=== PATIENT | female | born 1990 | race African-American/Black ===

== ENCOUNTER 2016-12-05 15:18 | Emergency (ER) | payer OTHER ==
--- NOTE | 2016-12-05 17:59 | ED ---
Skin Complaint - HPI Summary HPI Summary: Patient presents to ED with CC of tingling and dry patches on upper lip bilaterally with small white dots. 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 She denies previous orolabial HSV. She placed carmex cold sore cream on the areas which made the tingling worse, but she feels it helped prevent a cold sore from forming. She takes no medications, denies soap or lotion changes or any food allergies. She notes to eating a lot of hot cheetos and mangos lately, but denies allergies to either. She denies detergent change or medication changes. No airway compromise. Denies new sexual partners. She also has tried benadryl with no relief. She was sick recently and she normally takes Lysine daily, but hasn't in several days. - History of Current Complaint Chief Complaint: EDGeneral Time Seen by Provider: 12/05/16 17:36 Stated Complaint: LIP PAIN Hx Obtained From: Patient Hx Last Menstrual Period: 12/03/15 Onset/Duration: Started Days Ago Skin Exposure Onset/Duration: Hours Ago Timing: Intermittent, Lasting Minutes Onset Severity: Mild Current Severity: Mild Pain Intensity: 0 Pain Scale Used: 0-10 Numeric Skin Location: Face Aggravating Symptom(s): Nothing Alleviating Symptom(s): OTC Meds Associated Signs & Symptoms: Negative - Allergy/Home Medications Allergies/Adverse Reactions: Allergies Allergy/AdvReac Type Severity Reaction Status Date / Time No Known Allergies Allergy Verified 12/05/16 15:47 PMH/Surg Hx/FS Hx/Imm Hx Previously Healthy: Yes Endocrine/Hematology History: Denies: Hx Diabetes, Hx Thyroid Disease Cardiovascular History: Denies: Hx Hypertension Respiratory History: Denies: Hx Asthma, Hx Chronic Obstructive Pulmonary Disease (COPD) GI History: Denies: Hx Ulcer History: Denies: Hx Renal Disease - Immunization History Hx Pertussis Vaccination: No Immunizations Up to Date: No Infectious Disease History: No Infectious Disease History: Denies: Hx Hepatitis, Hx Human Immunodeficiency Virus (HIV), Traveled Outside the [place] in Last 30 Days - Family History Known Family History: Positive: None - Social History Occupation: Employed Full-time Lives: With Family Alcohol Use: Occasionally Hx Substance Use: Yes Substance Use Type: Reports: Marijuana Hx Tobacco Use: No Smoking Status (MU): Never Smoked Tobacco Review of Systems Constitutional: Negative Eyes: Negative Positive: Other - lip pain Cardiovascular: Negative Respiratory: Negative Positive: Other - small white bumps to sides of lip over the oral commissure Neurological: Negative Psychological: Normal All Other Systems Reviewed And Are Negative: Yes Physical Exam Triage Information Reviewed: Yes Vital Signs On Initial Exam: Initial Vitals Temp Pulse Resp BP Pulse Ox 98.8 F 71 16 132/63 100 12/05/16 15:49 12/05/16 15:49 12/05/16 15:49 12/05/16 15:49 12/05/16 15:49 Vital Signs Reviewed: Yes Appearance: Positive: Well-Appearing, Well-Nourished Skin: Positive: Warm, Skin Color Reflects Adequate Perfusion Head/Face: Positive: Normal Head/Face Inspection Eyes: Positive: LOLITA, Conjunctiva Clear ENT: Positive: Pharynx normal Neck: Positive: Supple, No Lymphadenopathy Respiratory/Lung Sounds: Positive: Clear to Auscultation, Breath Sounds Present Cardiovascular: Positive: Normal, RRR Musculoskeletal: Positive: Normal, Strength/ROM Intact Neurological: Positive: Sensory/Motor Intact, Alert, Oriented to Person Place, Time Psychiatric: Positive: Normal Diagnostics - Vital Signs Vital Signs Temp Pulse Resp BP Pulse Ox 12/05/16 15:49 98.8 F 71 16 132/63 100 - Laboratory Lab Statement: Any lab studies that have been ordered have been reviewed, and results considered in the medical decision making process. Course/Dx - Course Course Of Treatment: Provider educated patient regarding HSV 1 orolabial vs genital. Encouraged abreva, acyclovir as prescribed, tea tree oil and lysine. Patient will follow up with PCP if symptoms persist. Rx given. - Differential Diagnoses - Skin Complaint Differential Diagnoses: Allergic Reaction, Other - hsv 2, orolabial hsv, allergic reaction, contact dermatitis - Diagnoses Provider Diagnoses: HSV-1 infection Discharge - Discharge Plan Condition: Stable Disposition: HOME Prescriptions: Acyclovir CAP* [Zovirax CAP*] 200 mg PO 5ID #25 cap Patient Education Materials: Oral Herpes Simplex Virus Infections (ED) Referrals: No Primary Care Phys,NOPCP [Primary Care Provider] - Additional Instructions: Follow up with PCP. Obtain Abreva and place over the cold sore immediately at first sign of dryness or tingling. Lysine daily Tea tree oil to the lip will help with future outbreaks as well.
[2016-12-05 18:05] VITALS: BP 132/74
== END 2016-12-05 18:04 | disposition home or self-care (01) ==
LOC: ED 15:18
DX: B00.9 Herpesviral infection, unspecified (principal)
CPT/HCPCS: 99282

== ENCOUNTER 2017-01-21 09:27 | Emergency (ER) | payer OTHER ==
[2017-01-21 10:14] LABS: Manual Entry Verification AS; UR Preg Internal Control QC Line Present; UR Preg Kit Lot# 7010135
--- NOTE | 2017-01-21 10:27 | ED ---
GI/ HPI - HPI Summary HPI Summary: 26F presents with burning with urination for a month. She also noticed vaginal lesions yesterday with some burning that believes is HSV infection. She denies any chance of STD as she has not had sex in 2 years. She denies any vaginal discharge. She had her first outbreak of HSV a couple years ago. She denies any abdominal pain, constipation, diarrhea, or vomiting. She has chronic nausea at baseline that is unchanged. She denies any fever. She denies any flank pain. - History of Current Complaint Chief Complaint: EDUrogenitalProblems Time Seen by Provider: 01/21/17 09:56 Stated Complaint: FREQ URINATION Pain Intensity: 0 - Allergy/Home Medications Allergies/Adverse Reactions: Allergies Allergy/AdvReac Type Severity Reaction Status Date / Time No Known Allergies Allergy Verified 12/05/16 15:47 PMH/Surg Hx/FS Hx/Imm Hx Endocrine/Hematology History: Denies: Hx Diabetes, Hx Thyroid Disease Cardiovascular History: Denies: Hx Hypertension Respiratory History: Denies: Hx Asthma, Hx Chronic Obstructive Pulmonary Disease (COPD) GI History: Denies: Hx Ulcer History: Denies: Hx Renal Disease Infectious Disease History: Denies: Hx Hepatitis, Hx Human Immunodeficiency Virus (HIV), Traveled Outside the [place] in Last 30 Days - Family History Known Family History: Positive: None - Social History Alcohol Use: Occasionally Hx Substance Use: Yes Substance Use Type: Reports: Marijuana Hx Tobacco Use: No Smoking Status (MU): Never Smoked Tobacco Review of Systems Negative: Fever Negative: Chest Pain Negative: Shortness Of Breath Positive: Nausea - chronic. Negative: Abdominal Pain, Vomiting, Diarrhea Positive: burning - with lesions, dysuria. Negative: flank pain All Other Systems Reviewed And Are Negative: Yes Physical Exam Triage Information Reviewed: Yes Vital Signs On Initial Exam: Initial Vitals Temp Pulse Resp BP Pulse Ox 97 F 59 17 137/88 100 01/21/17 09:29 01/21/17 09:29 01/21/17 09:29 01/21/17 09:29 01/21/17 09:29 Vital Signs Reviewed: Yes Appearance: Positive: Well-Appearing Skin: Positive: Warm, Dry Head/Face: Positive: Normal Head/Face Inspection Eyes: Positive: Normal, Conjunctiva Clear Respiratory/Lung Sounds: Positive: Clear to Auscultation, Breath Sounds Present Cardiovascular: Positive: Normal, RRR Abdomen Description: Positive: Nontender, Soft. Negative: CVA Tenderness (R), CVA Tenderness (L) Bowel Sounds: Positive: Present Pelvic Exam: Positive: other - lesions noted to labia consistent with HSV. Negative: active bleeding - Mackenzie Coma Scale Coma Scale Total: 15 Diagnostics - Vital Signs Vital Signs Temp Pulse Resp BP Pulse Ox 01/21/17 10:01 97 F 59 17 137/88 100 01/21/17 09:29 97 F 59 17 137/88 100 - Laboratory Lab Results: Lab Results 01/21/17 Range/Units 09:33 Urine Color Pending Urine Appearance Pending Urine pH Pending Ur Specific [place] Pending Urine Protein Pending Urine Ketones Pending Urine Blood Pending Urine Nitrate Pending Urine Bilirubin Pending Urine Urobilinogen Pending Ur Leukocyte Esterase Pending Urine Glucose Pending Urine Ascorbic Acid Pending Urine Test Negative (Negative) Lab Statement: Any lab studies that have been ordered have been reviewed, and results considered in the medical decision making process. GIGU Course/Dx - Course Course Of Treatment: 26F presents with burning with urination for a month and vaginal lesions yesterday with some burning that believes is HSV infection. She denies any chance of STD as she has not had sex in 2 years. She denies any abdominal pain, constipation, diarrhea, or vomiting. She has chronic nausea at baseline that is unchanged. She denies any fever. She denies any flank pain. On exam nontender abdomen, no CVA tenderness. vaginal exam shows lesions consistent with HSV so will treat with valtrex. u/a shows WBC and leuko marni so will give bactrim. patient understands and agrees with plan - Diagnoses Differential Diagnoses - Female: Urinary Tract Infection, Vaginitis, Other - HSV , Provider Diagnoses: HSV infection, UTI (urinary tract infection) Discharge - Discharge Plan Condition: Good Disposition: HOME Prescriptions: Sulfamethox/Trimethoprim DS* [Bactrim DS 800/160 TAB*] 1 tab PO BID #10 tab ValACYclovir (*) [Valtrex 500 mg (*)] 500 mg PO BID #10 tab Patient Education Materials: Genital Herpes Simplex (ED), Urinary Tract Infection in Women (ED) Referrals: [facility] [Outside] Additional Instructions: Take valtrex twice a day for 5 days Take Bactrim twice a day for 5 days Establish care with primary to follow up with Return to ED if develop fever, severe abdominal pain, nausea, or vomiting or any new or worsening symptoms
[2017-01-21 10:55] LABS: Urine Bacteria Absent (Absent); Urine Bilirubin Negative (Negative); Urine Glucose Negative (Negative); Urine Nitrite Negative (Negative)
[2017-01-21 11:20] VITALS: BP 134/82
== END 2017-01-21 11:19 | disposition home or self-care (01) ==
LOC: ED 09:27
DX: N39.0 Urinary tract infection, site not specified (principal); B00.9 Herpesviral infection, unspecified; R11.0 Nausea; R30.0 Dysuria
CPT/HCPCS: 81003; 81015; 81025; 87086; 99282

== ENCOUNTER 2017-06-01 13:02 | Emergency (ER) | payer OTHER ==
[2017-06-01 13:32] VITALS: BP 132/78
--- NOTE | 2017-06-01 15:11 | UC ---
Jonh Laughlin Rebecca, scribed for Daren Austin MD on 06/01/17 at 1451 . General HPI - HPI Summary HPI Summary: Pt is a 27 y/o F who presents to [facility] c/o intermittent illness for 2-3 weeks. Pt reports that for the last 2-3 weeks she has been intermittently ill stating that every time her symptoms seem to improve, they will return. Pt c/o nasal congestion, nausea, decreased appetite and post-nasal drip described as "I feel it when I swallow but it comes from up top." Additionally notes that this morning she experienced vomiting, lightheadedness, and a frontal RODRIGUEZ that is currently moderate, ranked 6/10 and characterized as an ache. Sx aggravated by stress and her work schedule, alleviated by nothing. Denies sore throat, rhinorrhea, ear pain, fever, chills, wheezing, chest congestion and abdominal pain. States that everyone in her house has been "kind of sick." - History of Current Complaint Chief Complaint: UCGeneralIllness Stated Complaint: VOMITING RESP ISSUE Time Seen by Provider: 06/01/17 14:38 Hx Obtained From: Patient Hx Last Menstrual Period: 1 WEEK AGO Onset/Duration: Lasting Weeks - 2-3 weeks, Still Present Timing: Intermittent Episodes Lasting: Current Severity: Moderate Pain Intensity: 6 Pain Location at: Frontal RODRIGUEZ Character: Ache Aggravating: Stress and work schedule Alleviating: Nothing Associated Signs & Symptoms: Positive: Headache, Nausea. Negative: Abdominal Pain, Fever, Wheezing - Allergy/Home Medications Allergies/Adverse Reactions: Allergies Allergy/AdvReac Type Severity Reaction Status Date / Time Ciprofloxacin [From Cipro] Allergy Rash Verified 06/01/17 13:33 PMH/Surg Hx/FS Hx/Imm Hx - Additional Past Medical History Additional PMH: NEGATIVE PMHX: COPD, HTN, DM, Thyroid Disease, Asthma - Surgical History Surgical History: None - Family History Known Family History: Negative: Diabetes - Social History Alcohol Use: Occasionally Substance Use Type: Marijuana Smoking Status (MU): Never Smoked Tobacco Review of Systems Constitutional: Negative Skin: Negative Eyes: Negative ENT: Sinus Congestion, Other - Post-nasal drip Respiratory: Negative Cardiovascular: Negative Gastrointestinal: Vomiting, Nausea, Other - Decreased appetite Genitourinary: Negative Motor: Negative Neurovascular: Negative Musculoskeletal: Negative Neurological: Headache - Frontal, Other - Lightheadedness Psychological: Negative All Other Systems Reviewed And Are Negative: Yes - Comments Additional Review of Systems Comments: NEGATIVE: Sore throat, rhinorrhea, ear pain, fever, chills, wheezing, chest congestion and abdominal pain Physical Exam Triage Information Reviewed: Yes Vital Signs: Initial Vital Signs Temp 100.1 F 06/01/17 13:28 Pulse 72 06/01/17 13:28 Resp 15 06/01/17 13:28 BP 132/78 06/01/17 13:28 Pulse Ox 100 06/01/17 13:28 Vital Signs Reviewed: Yes - Additional Comments General: mildly ill-appearing, no pain distress Skin: warm, color reflects adequate perfusion, dry Head: normal Eyes: EOMI, LOLITA ENT: TM normal, positive rhinorrhea, posterior pharynx is mildly erythematous, oral mucosa moist Neck: supple, nontender, posterior anterior cervical lymphadenopathy Respiratory: CTA, breath sounds present Cardiovascular: RRR Abdomen: soft, nontender Bowel: present Musculoskeletal: normal, strength/ROM intact Neurological: normal, sensory/motor intact, A&O x3 Psychological: affect/mood appropriate Re-Evaluation - Re-Evaluation First Eval Re-Evaluation Time: 14:49 Comment: Discussed results from prior visit Course/Dx - Course Course Of Treatment: Allergies noted. Medications reviewed. Elevated BP noted and advised to follow up with PCP. - Differential Dx - Multi-Symptom Provider Diagnoses: SINUSITIS. NAUSEA/VOMITING Discharge - Discharge Plan Condition: Stable Disposition: HOME Prescriptions: Amoxicillin/Clavulanate TAB* [Augmentin TAB 875*] 875 mg PO BID #20 tab Ondansetron ODT TAB* [Zofran 4 MG Odt TAB*] 4 mg PO Q6H PRN #10 tab.odt PRN Reason: Nausea Patient Education Materials: Sinusitis (ED), Acute Nausea and Vomiting (ED) Forms: *Work Release Referrals: Jane Tavarez MD [Primary Care Provider] - Additional Instructions: FOLLOW UP WITH YOUR DOCTOR. GET RECHECKED FOR ANY WORSENING OF YOUR CONDITION OR QUESTIONS OR CONCERNS. The documentation as recorded by the Jonh weaver Rebecca accurately reflects the service I personally performed and the decisions made by me, Daren Austin MD.
== END 2017-06-01 14:55 | disposition home or self-care (01) ==
LOC: UCEAST 13:02
DX: J32.9 Chronic sinusitis, unspecified (principal); R11.2 Nausea with vomiting, unspecified
CPT/HCPCS: 99212; G0463

== ENCOUNTER 2018-05-15 14:41 | Emergency (ER) | payer OTHER ==
--- NOTE | 2018-05-15 16:12 | RAD ---
Indication: Left leg pain and injury. 2 views of the left lower leg demonstrates no fracture or dislocation. No other bone or joint abnormality is identified. IMPRESSION: No fracture of the left leg is noted.
--- NOTE | 2018-05-15 16:13 | ED ---
Lower Extremity - HPI Summary HPI Summary: 28-year-old female presents with left calf injury today. She states that she dropped a milk crate on her left calf. there is bruising noted to her left calf. She states that pain is worst when tries to ambulate. No numbness or tingling. No medical conditions. not on blood thinners. Incident happened a couple hours ago. On exam has ecchymosis noted to left calf. Tenderness over left calf. X-ray normal. We will treat as contusion with rice. Patient understands agrees the plan. - History of Current Complaint Chief Complaint: EDExtremityLower Stated Complaint: LT LEG INJURY Time Seen by Provider: 05/15/18 15:22 Hx Last Menstrual Period: 1 WEEK AGO Pain Intensity: 0 - Allergies/Home Medications Allergies/Adverse Reactions: Allergies Allergy/AdvReac Type Severity Reaction Status Date / Time ciprofloxacin [From Cipro] Allergy Rash Verified 05/15/18 15:12 Home Medications: Home Medications NK [No Home Medications Reported] 05/15/18 [History Confirmed 05/15/18] PMH/Surg Hx/FS Hx/Imm Hx Endocrine/Hematology History: Denies: Hx Diabetes, Hx Thyroid Disease Cardiovascular History: Denies: Hx Hypertension Respiratory History: Denies: Hx Asthma, Hx Chronic Obstructive Pulmonary Disease (COPD) GI History: Denies: Hx Ulcer History: Denies: Hx Renal Disease Infectious Disease History: No Infectious Disease History: Denies: Hx Hepatitis, Hx Human Immunodeficiency Virus (HIV), History Other Infectious Disease, Traveled Outside the [place] in Last 30 Days - Family History Known Family History: Positive: None Negative: Diabetes - Social History Alcohol Use: Rare Hx Substance Use: Yes Substance Use Type: Reports: Marijuana Hx Tobacco Use: No Smoking Status (MU): Never Smoked Tobacco Review of Systems Negative: Fever Negative: Chest Pain Negative: Shortness Of Breath Positive: Myalgia - left calf pain All Other Systems Reviewed And Are Negative: Yes Physical Exam Triage Information Reviewed: Yes Vital Signs On Initial Exam: Initial Vitals Temp Pulse Resp BP Pulse Ox 98.0 F 76 16 141/73 99 05/15/18 15:10 05/15/18 15:10 05/15/18 15:10 05/15/18 15:10 05/15/18 15:10 Vital Signs Reviewed: Yes Appearance: Positive: Well-Appearing Skin: Positive: Warm, Dry Head/Face: Positive: Normal Head/Face Inspection Eyes: Positive: Normal, Conjunctiva Clear ENT: Positive: Pharynx normal Respiratory/Lung Sounds: Positive: Clear to Auscultation, Breath Sounds Present Cardiovascular: Positive: Normal, RRR Musculoskeletal: Positive: Strength/ROM Intact - left calf with pain, Other - good pulses, ecchymosis to left calf, tenderness left calf Neurological: Positive: Normal Psychiatric: Positive: Normal Diagnostics - Vital Signs Vital Signs Temp Pulse Resp BP Pulse Ox 05/15/18 15:10 98.0 F 76 16 141/73 99 - Laboratory Lab Statement: Any lab studies that have been ordered have been reviewed, and results considered in the medical decision making process. - Radiology leg Xray Interpretation: No Acute Changes Radiology Interpretation Completed By: Radiologist Lower Extremity Course/Dx - Course Course Of Treatment: 28-year-old female presents with left calf injury today. She states that she dropped a milk crate on her left calf. there is bruising noted to her left calf. She states that pain is worst when tries to ambulate. No numbness or tingling. No medical conditions. not on blood thinners. Incident happened a couple hours ago. On exam has ecchymosis noted to left calf. Tenderness over left calf. X-ray normal. We will treat as contusion with rice. Patient understands agrees the plan. - Diagnoses Differential Diagnosis/HQI/PQRI: Positive: Contusion, Fracture (Closed), Sprain Provider Diagnoses: Contusion of left lower leg Discharge - Sign-Out/Discharge Documenting (check all that apply): Patient Departure - Discharge Plan Condition: Good Disposition: HOME Patient Education Materials: Contusion in Adults (ED) Referrals: Jane Tavarez MD [Primary Care Provider] - Additional Instructions: Stay off ankle as much as possible Ice, elevate, Ibuprofen or tyenlol every 6 hours for pain Follow up with primary if no improvement Return to ED if develop or any new or worsening symptoms - Billing Disposition and Condition Condition: GOOD Disposition: Home
[2018-05-15 16:36] VITALS: BP 129/72
== END 2018-05-15 16:35 | disposition home or self-care (01) ==
LOC: ED 14:41
DX: S80.12XA Contusion of left lower leg, initial encounter (principal); W20.8XXA Other cause of strike by thrown, projected or falling object, initial encounter; Y92.9 Unspecified place or not applicable
CPT/HCPCS: 99282

== ENCOUNTER 2019-05-07 00:17 | Emergency (ER) | payer BC ==
--- OUTSIDE RECORDS SUMMARY | 2019-05-07 00:28 | XMS REPORT | Continuity of Care Document ---
:1990 External Reference #:[id number] Author Name Luis Reed MD (transmitted by agent of provider Charleen Vinson) Address [address] [place] [address] Care Team Providers Name Role Phone Solo Sweet MD - Internal Care Team Information Sustainable Development Policy Analyst Medicine Jane Tavarez MD - Internal Care Team Information Sustainable Development Policy Analyst Medicine Problems Active Problems Provider Date Current tear of lateral cartilage AND/OR meniscus Luis Reed MD Onset: of knee Closed traumatic dislocation of patellofemoral Luis Reed MD Onset: 2018 joint Sprain of knee and leg Luis Reed MD Onset: 11/14/2018 Knee joint effusion Luis Reed MD Onset: 11/14/2018 Social History Type Date Description Comments Sex Unknown Tobacco Use Start: Unknown Never Smoked Cigarettes ETOH Use Occasionally consumes alcohol ETOH Use social Recreational Drug Use Current Drug User Tobacco Use Start: Unknown Patient has never smoked Recreational Drug Use Current Drug User marijuana Smoking Status Reviewed: 03/16/19 Patient has never smoked Exercise Type/Frequency Exercises regularly Exercise Type/Frequency hiking, and gym Allergies, Adverse Reactions, Alerts Active Allergies Reaction Severity Comments Date Sulfa Antibiotics 02/16/2017 Medications Active Medications SIG Qnty Indications Ordering Provider Date Hinge Knee Brace Disp 1 hinge 1units M25.462 Luis Reed MD 02/28/2019 knee brace Multi Adult Gummies 2 by mouth Unknown every day Chewtabs History Medications No Active Medications Unknown 11/14/2018 - 01/03/2019 Immunizations Description No Information Available Vital Signs Date Vital Result Comment 03/16/2019 11:53am Height 63 inches 5'3" Weight 219.00 lb Heart Rate 60 /min BP Systolic 110 mmHg BP Diastolic 70 mmHg Pain Level 5 BMI (Body Mass Index) 38.8 kg/m2 02/15/2019 1:11pm Height 64.5 inches 5'4.50" Weight 212.00 lb Heart Rate 80 /min BP Systolic 120 mmHg BP Diastolic 88 mmHg Body Temperature 98.6 F Pain Level 9 BMI (Body Mass Index) 35.8 kg/m2 Results Description No Information Available Procedures Date Code Description Status 02/07/2019 78239 ECHO Transthoracic, Real-Time 2D With Doppler And Color Completed Flow 02/07/2019 10189 ECHO Transthoracic, Real-Time 2D With Doppler And Color Completed Flow 01/03/2019 99830 EKG Tracing & Interpretation Completed Medical Devices Description No Information Available Encounters Type Date Location Provider Dx Diagnosis Office Visit 03/16/2019 Orthopedic Luis Reed MD M25.462 Effusion, left 11:30a [facility] knee S83.282A Oth tear of lat mensc, current injury, left knee, init Office Visit 02/15/2019 1:45p [facility]opedic Luis Reed, M25.462 Effusion, left [facility] S83.012A Lateral subluxation of left patella, initial encounter Office Visit 01/03/2019 10:00a [facility] Nikolay Mclaughlin E66.9 Obesity , Kirsten Britt unspecified R00.1 Bradycardia, unspecified R42 Dizziness and giddiness R01.1 Cardiac murmur, unspecified R55 Syncope and collapse I27.20 Pulmonary hypertension, unspecified Office Visit 11/14/2018 2:45p [facility] Luis Reed, M25.462 Effusion, left [facility] S83.92xA Sprain of unspecified site of left knee, initial encounter M25.562 Pain in left knee Assessments Date Code Description Provider 03/16/2019 M25.462 Effusion, left knee Luis Reed MD 03/16/2019 S83.282A Other tear of lateral meniscus, current Luis Reed MD injury, left knee, initial encounter 02/15/2019 M25.462 Effusion, left knee Luis Reed MD 02/15/2019 S83.012A Lateral subluxation of left patella, Luis Reed MD initial encounter 02/07/2019 I27.20 Pulmonary hypertension, unspecified Nikolay Britt M.D. 02/07/2019 I27.20 Pulmonary hypertension, unspecified [facility] Schedule 02/07/2019 I34.0 Mitral valve regurgitation [facility] 01/03/2019 E66.9 Obesity, unspecified Nikolay Britt M.D. 01/03/2019 R00.1 Bradycardia, unspecified Nikolay Britt M.D. 01/03/2019 R42 Dizziness and giddiness Nikolay Britt M.D. 01/03/2019 R01.1 Cardiac murmur, namrata Britt M.D. 01/03/2019 R55 Syncope and collapse Nikolay Britt M.D. 01/03/2019 I27.20 Pulmonary hypertension Nikolay Britt M.D. 11/14/2018 M25.462 Effusion, left knee Luis Reed MD 11/14/2018 S83.92xA Sprain of unspecified site of left knee, Luis Reed MD initial encounter 11/14/2018 M25.562 Pain in left knee Luis Reed MD Plan of Treatment Future Appointment(s):04/19/2019 1:00 pm - [facility]03/16/2019 - Luis Reed, MDM25.462 Effusion, left kneeS83.282A Other tear of lateral meniscus, current injury, left knee, initial encounterFollow up:Follow up: 10-14 days post op or h and p Functional Status Description No Information Available Mental Status Description No Information Available Referrals Description No Information Available
[2019-05-07] MEDS ORDERED: Ketorolac INJ* 30 MG/ML 1 ML VIAL IV PUSH ONE (00:51)
[2019-05-07] MEDS ORDERED: Benztropine INJ* 1 MG/ML 2 ML AMP SLOW PUSH ONE (00:51)
--- NOTE | 2019-05-07 00:54 | ED ---
Neck Pain - HPI Summary HPI Summary: This patient is a 29 year old F presenting to ED with a chief complaint of left neck pain since yesterday at 0000. Patient states it hurt when she ate her sandwich. The patient went to bed and woke up still with the pain. She worked around the house and had continued pain at dinner. Patient states the pain is in her neck and radiates into the L shoulder into the axilla. Patient states she cannot turn her neck. This morning she reports her left arm felt weird. She has never had any other problems with her neck. The patient rates the pain 10/10 in severity. Symptoms aggravated by nothing. Symptoms alleviated by movement. Patient denies fever. - History of Current Complaint Chief Complaint: EDNeckComplaint Stated Complaint: NECK PAIN PER PT Time Seen by Provider: 05/07/19 00:46 Hx Obtained From: Patient Hx Last Menstrual Period: 1 WEEK AGO Onset/Duration Of Injury/Symptoms: Days - Since yesterday Mechanism Of Injury: No Known Trauma Timing: Constant, Lasting Days - Since yesterday Onset/Duration: Gradual Onset, Started days ago - Since yesterday, Still Present , Worse Since Severity Initially: Severe Severity Currently: Severe Pain Intensity: 10 Pain Scale Used: 0-10 Numeric Location: Discrete At: - Left neck, Radiates To: - Left shoulder and axilla Aggravating Factors: Movement Alleviating Factors: Nothing Associated Signs & Symptoms: Negative: Fever - Allergies/Home Medications Allergies/Adverse Reactions: Allergies Allergy/AdvReac Type Severity Reaction Status Date / Time ciprofloxacin [From Cipro] Allergy Rash Verified 05/10/19 23:45 PMH/Surg Hx/FS Hx/Imm Hx Endocrine/Hematology History: Denies: Hx Diabetes, Hx Thyroid Disease Cardiovascular History: Denies: Hx Hypertension, Hx Pacemaker/ICD Respiratory History: Denies: Hx Asthma, Hx Chronic Obstructive Pulmonary Disease (COPD) GI History: Denies: Hx Ulcer History: Denies: Hx Dialysis, Hx Renal Disease Sensory History: Denies: Hx Hearing Aid Psychiatric History: Denies: Hx Panic Disorder Infectious Disease History: No Infectious Disease History: Denies: Hx Hepatitis, Hx Human Immunodeficiency Virus (HIV), History Other Infectious Disease, Traveled Outside the [place] in Last 30 Days - Family History Known Family History: Negative: Diabetes - Social History Alcohol Use: Rare Hx Substance Use: Yes Substance Use Type: Reports: Marijuana Hx Tobacco Use: No Smoking Status (MU): Never Smoked Tobacco Review of Systems Negative: Fever Musculoskeletal: Other - Neck pain radiating into left shoulder and axilla All Other Systems Reviewed And Are Negative: Yes Physical Exam - Summary Physical Exam Summary: Appearance: very distraught tearful woman, appears to be in a lot of pain Skin: Warm, dry, no obvious rash Eyes: sclera anicteric, no conjunctival pallor ENT: mucous membranes moist Neck: unable to flex or extend her neck without significant discomfort. She can rotate somewhat to the left and right but this is limited. There is no significant tenderness to palpation or obvious muscle spasm noted in the neck. Respiratory: No signs of respiratory distress Cardiovascular: Appears well perfused, pulses are nml Abdomen: deferred Musculoskeletal: Moving all 4 extremities without obvious discomfort Neurological: Awake and alert, mentation is normal, speech is fluent and appropriate Psychiatric: affect is normal, does not appear anxious or depressed Triage Information Reviewed: Yes Vital Signs On Initial Exam: Initial Vitals Temp Pulse Resp BP Pulse Ox 99.4 F 74 15 135/101 100 05/07/19 00:20 05/07/19 00:20 05/07/19 00:20 05/07/19 00:20 05/07/19 00:20 Vital Signs Reviewed: Yes Procedures - Sedation Patient Received Moderate/Deep Sedation with Procedure: No Diagnostics - Vital Signs Vital Signs Temp Pulse Resp BP Pulse Ox 05/07/19 00:20 99.4 F 74 15 135/101 100 - Laboratory Result Diagrams: 05/07/19 01:07 05/07/19 01:07 Lab Statement: Any lab studies that have been ordered have been reviewed, and results considered in the medical decision making process. - Radiology C-spine XR Radiology Interpretation Completed By: ED Physician Summary of Radiographic Findings: Normal, pending official radiology report. Re-Evaluation - Re-Evaluation First Eval Re-Evaluation Time: 17:43 Comment: Discussed results with patient. Patient reports feeling better. She is moving her neck more. I cautioned the patient about signs for spinal infection or nerve damage. Patient will be discharged home with dx of neck pain. Patient understands and agrees with this plan. Neck Course/Dx - Course Course Of Treatment: This patient is a 29 year old F presenting to ED with a chief complaint of left neck pain since yesterday at 0000. In the ED course, patient received Cogentin, Toradol, and morphine. Blood work revealed MCH 32, MPV 7.1, absolute eosinophils 1.2, carbon dioxide 20, glucose 113. C-spine XR was normal, pending official radiology report. Discussed results with patient. Patient will be discharged home with dx of neck pain. Patient understands and agrees with this plan. - Diagnoses Differential Dx/HQI/PQRI: Positive: Dystonia, Meningitis, Torticollis Provider Diagnoses: Neck pain Discharge ED - Sign-Out/Discharge Documenting (check all that apply): Patient Departure - Discharge - Discharge Plan Condition: Improved Disposition: HOME Prescriptions: Benztropine TAB* [Cogentin TAB*] 1 mg PO BID #10 tab Oxycodone TAB(NF) [Oxycodone HCl 10 MG] 10 mg PO Q6H PRN #12 tab MDD 4 PRN Reason: Pain - Severe Patient Education Materials: Neck Pain (ED) Forms: *Work Release Referrals: Jane Tavarez MD [Primary Care Provider] - 1 Week Additional Instructions: If your symptoms worsen over the next 2-3 days, or you develop new symptoms like fever or weakness in the extremities, we should see you back right away. If that were to happen we would need to get an advanced imaging test of your neck like an MRI. - Billing Disposition and Condition Condition: IMPROVED Disposition: Home - Attestation Statements Document Initiated by Carie: Yes Documenting Scribe: Freddy Chamberlain Provider For Whom Carie is Documenting (Include Credential): James Monteiro MD Scribe Attestation: I, Freddy Chamberlain, scribed for James Monteiro MD on 05/14/19 at 0524. Scribe Documentation Reviewed: Yes Provider Attestation: The documentation as recorded by the Freddy weaver accurately reflects the service I personally performed and the decisions made by me, James Monteiro MD Status of Scribmitul Document: Viewed
[2019-05-07] MEDS: Morphine 4 MG/ML VIAL (1 ml) 4 MG/ML VIAL IV PRN ×2 (01:11→03:28)
[2019-05-07 01:20] LABS: ABS Basophils 0.1 10^3/ul (0-0.2); ABS Eosinophils 1.2 10^3/ul (0-0.6); ABS Lymphocytes 2.4 10^3/ul (1.0-4.8); ABS Monocytes 0.6 10^3/ul (0-0.8); ABS Neutrophils 3.2 10^3/ul (1.5-7.7); Eosinophil % 16.4 %; Hematocrit 42 % (35-47); Hemoglobin 13.8 g/dL (12.0-16.0); Lymphocyte % 32.1 %; Mean Corpuscular HGB Conc 33 g/dL (31-36); Mean Corpuscular Hemoglobin 32 pg (27-31); Mean Corpuscular Volume 95 fL (80-97); Mean Platelet Volume 7.1 fL (7.4-10.4); Nucleated Red Blood Cells % 0.2; Platelet Count 294 10^3/uL (150-450); Red Blood Count 4.37 10^6 /uL (3.70-4.87); Red Cell Distribution Width 13 % (10-15); White Blood Count 7.6 10^3/uL (3.5-10.8)
[2019-05-07 01:32] LABS: Anion Gap 6 mmol/L (2-11); BUN/Creatinine Ratio 19.1 (8-20); Blood Urea Nitrogen 17 mg/dL (6-24); C Reactive Protein < 1.00 mg/L (<8.01); CO2 Carbon Dioxide 20 mmol/L (22-32); Chloride 109 mmol/L (101-111); EGFR African American 90.1 (>60); EGFR Non-African American 74.5 (>60); Glucose 113 mg/dL (70-100); Potassium 4.1 mmol/L (3.5-5.0); Sodium 135 mmol/L (135-145)
[2019-05-07 01:39] LABS: HCG Pregnancy < 0.60 mIU/mL
[2019-05-07 06:13] VITALS: BP 138/96
== END 2019-05-07 06:12 | disposition home or self-care (01) ==
LOC: ED 00:17
DX: M54.2 Cervicalgia (principal); Z88.1 Allergy status to other antibiotic agents
CPT/HCPCS: 36415; 72040; 80048; 84702; 85025; 86140; 96374; 96375; 99283; J0515; J1885; J2270

== ENCOUNTER 2019-05-10 19:49 | Emergency (ER) | payer SELFPAY ==
[2019-05-11] MEDS ORDERED: Iohexol 300* (CONTRAST) 10 ML SDV IV ONE (00:07)
--- NOTE | 2019-05-11 00:20 | ED ---
Throat Pain/Nasal Congestion - HPI Summary HPI Summary: Pt is a 29 y/o F presenting to the ED for a chief complaint of throat pain. Pt reports pain with swallowing that radiates to the neck and has a sharp sensation. Pt woke up with neck pain and limited ROM due to the pain on . Pt has been unable to eat without pain. Pt denies abdominal pain or throat swelling. Pt was seen at [facility] on 05/08/19 for left neck pain with swallowing. Pt had an x-ray performed at [facility]. Pt was discharged home with some relief of symptoms and given Benztropine, Oxycodone, and a muscle relaxant. Pt has a PMHx of bradycardia. - History of Current Complaint Chief Complaint: EDGeneral Time Seen by Provider: 05/10/19 23:21 Hx Obtained From: Patient Onset/Duration: Lasting Days, Still Present Severity: Moderate Associated Signs And Symptoms: Positive: Dysphagia Cough: None - Allergies/Home Medications Allergies/Adverse Reactions: Allergies Allergy/AdvReac Type Severity Reaction Status Date / Time ciprofloxacin [From Cipro] Allergy Rash Verified 05/10/19 23:45 PMH/Surg Hx/FS Hx/Imm Hx Previously Healthy: Yes Endocrine/Hematology History: Denies: Hx Diabetes, Hx Thyroid Disease Cardiovascular History: Reports: Other Cardiovascular Problems/Disorders - Bradycardia Denies: Hx Hypertension, Hx Pacemaker/ICD Respiratory History: Denies: Hx Asthma, Hx Chronic Obstructive Pulmonary Disease (COPD) GI History: Denies: Hx Ulcer History: Denies: Hx Dialysis, Hx Renal Disease Sensory History: Denies: Hx Legally Blind, Hx Hearing Aid Opthamlomology History: Denies: Hx Legally Blind EENT History: Denies: Hx Deafness Psychiatric History: Denies: Hx Panic Disorder - Surgical History Surgical History: None Surgery Procedure, Year, and Place: None Infectious Disease History: No Infectious Disease History: Denies: Hx Hepatitis, Hx Human Immunodeficiency Virus (HIV), History Other Infectious Disease, Traveled Outside the [place] in Last 30 Days - Family History Known Family History: Negative: Diabetes - Social History Alcohol Use: Rare Hx Substance Use: Yes Substance Use Type: Reports: Marijuana Hx Tobacco Use: No Smoking Status (MU): Never Smoked Tobacco Review of Systems Positive: Other - Positive throat pain with swallowing; negative throat swelling Negative: Abdominal Pain Positive: Myalgia - Neck, radiates from throat, Decreased ROM - Neck All Other Systems Reviewed And Are Negative: Yes Physical Exam - Summary Physical Exam Summary: Constitutional: Well-developed, Well-nourished, Alert. (-) Distressed Skin: Warm, Dry HENT: Normocephalic; Atraumatic. Posterior oropharynx clear, no goiter. Eyes: Conjunctiva normal Neck: Musculoskeletal ROM normal neck. (-) JVD, (-) Stridor, (-) Nuchal rigidity Cardio: Rhythm regular, rate normal, Heart sounds normal; Intact distal pulses; Radial pulses are 2+ and symmetric. (-) Murmur Pulmonary/Chest wall: Effort normal. (-) Respiratory distress, (-) Wheezes, (-) Rales Abd: Soft, (-) tenderness, (-) Distension, (-) Guarding, (-) Rebound Musculoskeletal: (-) Edema Lymph: (-) Cervical adenopathy Neuro: Alert, Oriented x3 Psych: Mood and affect Normal Triage Information Reviewed: Yes Vital Signs On Initial Exam: Initial Vitals Temp Pulse Resp BP Pulse Ox 98.4 F 84 16 139/85 100 05/10/19 19:55 05/10/19 19:55 05/10/19 19:55 05/10/19 19:55 05/10/19 19:55 Vital Signs Reviewed: Yes Procedures - Sedation Patient Received Moderate/Deep Sedation with Procedure: No Diagnostics - Vital Signs Vital Signs Temp Pulse Resp BP Pulse Ox 05/10/19 21:50 98.6 F 84 18 131/72 100 05/10/19 19:55 98.4 F 84 16 139/85 100 - Laboratory Lab Statement: Any lab studies that have been ordered have been reviewed, and results considered in the medical decision making process. - CT Neck CT CT Interpretation Completed By: Radiologist Summary of CT Findings: Neck CT IMPRESSION: There is mild thickening of the pharyngeal mucosal space at the level of the. nasopharynx, cannot exclude mild adenoiditis without visible abscess. Reviewed by ED physician. Re-Evaluation - Re-Evaluation 1st re-eval Re-Evaluation Time: 01:55 Comment: At 01:55, pt was updated about imaging results. Pt will be discharged home with a diagnosis of adenoiditis. We'll hold on antibiotics given afebrile well-appearing and no abscess on imaging. EENT Course/Dx - Course Course Of Treatment: 29-year-old female who presents to throat pain for several days. Patient also reports sensation of something stuck in throat, no obvious mass on exam, no goiter. Maintaining secretions, no difficulty in breathing. Given repeat presentation for similar, will check imaging to assess for mass, abscess, or lesion causing pain. - Diagnoses Provider Diagnoses: Adenoiditis Discharge ED - Sign-Out/Discharge Documenting (check all that apply): Patient Departure - Discharge - Discharge Plan Condition: Stable Disposition: HOME Patient Education Materials: Pharyngitis (ED) Referrals: Jane Tavarez MD [Primary Care Provider] - Additional Instructions: You were seen in the emergency department for throat pain. Your CT scan showed something called adenoiditis which is inflammation of the adenoids. This is likely caused by a virus. If any studies were not completed at the time of discharge you will be called with the relevant results. Please follow up with your primary care doctor in next 2-3 days and return to emergency department for worsening pain, fevers, trouble swallowing or breathing , or concerning symptoms. It was a pleasure taking care of you today. - Billing Disposition and Condition Condition: STABLE Disposition: Home - Attestation Statements Document Initiated by Shivaibmitul: Yes Documenting Scribe: Siobhan Underwood Provider For Whom Carie is Documenting (Include Credential): Andre Mckoy MD Scribe Attestation: Siobhan Laughlin, scribed for Andre Mckoy MD on 05/16/19 at 1123. Scribe Documentation Reviewed: Yes Provider Attestation: The documentation as recorded by the Siobhan weaver accurately reflects the service I personally performed and the decisions made by , Andre Mckoy MD Status of Scribe Document: Viewed
[2019-05-11] MEDS ORDERED: Ketorolac INJ* 30 MG/ML 1 ML VIAL IV ONE (01:51)
[2019-05-11 02:18] VITALS: BP 128/74
== END 2019-05-11 02:16 | disposition home or self-care (01) ==
LOC: ED 19:49
DX: J35.02 Chronic adenoiditis (principal); R07.0 Pain in throat; Z86.79 Personal history of other diseases of the circulatory system; R13.10 Dysphagia, unspecified
CPT/HCPCS: 70491; 99282; J1885; Q9967

== ENCOUNTER → 2019-06-04 | Day surgery (SDC) | payer BC ==
[~2019-06-04] MED LIST: Buffered Lidocaine 1% SYRIN* 1 ML/SYRINGE INTRADERM ONE; Dexamethasone IV* 4 MG/ML 1 ML (4 MG) IV SLOW PU ONE; Dexamethasone IV* 4 MG/ML 1 ML (4 MG) ONE; DiMENhydriNATE IV* 50 MG/ML VIAL IV PUSH PRN; EPHEDrine (Pressors)* 50 MG/ML VIAL ONE; Etomidate* 2 MG/ML 10 ML VIAL ONE; Etomidate* 2 MG/ML 20 ML VIAL (40 MG) ONE; Famotidine IV* 10 MG/ML 2 ML (20 mg) IV ONE; Famotidine IV* 10 MG/ML 2 ML (20 mg) ONE; Ketorolac INJ* 30 MG/ML 1 ML VIAL ONE; Lactated Ringers 1000 ML Bag* 1,000 ML IV SCH; Lidocaine 1% w EPI 1:200,000* SDV 30 ML VIAL ONE; Metoclopramide IV* 5 MG/ML 2 ML VIAL IV SLOW PU ONE; Metoclopramide IV* 5 MG/ML 2 ML VIAL ONE; Midazolam* 1 MG/ML 2 ML VIAL (2 MG) ONE; Naloxone* 0.4 MG/ML 1 ML VIAL IV PRN; Ondansetron INJ* 2 MG/ML VIAL ONE; Phenylephrine 40 MCG/ML SYRINGE ONE; Ropivacaine 0.2% * 2 MG/ML VIAL ONE; ceFAZolin 2 GM in NS PREMIX(*) 2 GM/100 ML BAG IVPB ONE; fentaNYL* 50 MCG/ML 2 ML VIAL (100 MCG VIAL) IV PRN; fentaNYL* 50 MCG/ML 2 ML VIAL (100 MCG VIAL) ONE
[2019-06-04 17:28] VITALS: BP 123/84
--- NOTE | 2019-06-05 10:28 | OP ---
DATE OF OPERATION: 06/04/19 [facility] DATE OF : 88 SURGEON: Luis Reed MD. [employer] DEVELOPER: ALAN Medina. An geriatric nurse assistant was needed for the entirety of the case due to the patient's size and the possible plan for repair. ANESTHESIOLOGIST: Dr. Beaver. ANESTHESIA: General. PRE-OP DIAGNOSIS: Lateral meniscus tear, left knee. POST-OP DIAGNOSES: Medial and lateral meniscus tears and a grade 3 anterior cruciate ligament rupture. OPERATIVE PROCEDURE: Left knee arthroscopy, possible meniscus repair. INDICATIONS: Johanna Gonzalez is a 29-year-old female who sustained an injury to her knee several months ago. She failed conservative treatment. She had persistent instability. She had catching and locking. After extensive discussion of risks and benefits and the patient has a cardiac history, she underwent preoperative medical risk optimization. She elected to proceed with surgical treatment. The plan was to try to repair the meniscus tear if possible versus partial meniscectomy. Risks and benefits were discussed at length including but not limited to bleeding; infection; damage to nerves, vessels, surrounding structures; wound nonhealing; persistent pain; need for surgery; scarring; stiffness; incomplete relief of symptoms; risk of anesthesia. DESCRIPTION OF PROCEDURE: The patient was greeted in the preoperative area by the attending surgeon. Correct extremity was marked and consent was confirmed. The patient was brought back to the operating suite and placed in the supine position on the operating table, underwent general anesthesia after which she was appropriately positioned in the bed. The lateral post was positioned. An unsterile tourniquet was placed high on the proximal thigh. The left leg was prepped and draped in the usual sterile fashion beginning with chlorhexidine soap, scrub, and alcohol wipe and a final prep with ChloraPrep. The knee was intra-articularly injected with 1% lidocaine with epi. The anterolateral portal was made sharply with an 11 blade. Scope was introduced into the joint. There was abundant synovitis present anteriorly and an ACL rupture was visualized. Preoperative images reviewed again and demonstrated that the ACL was intact and this is from January but had some attenuation in the fibers. Medial compartment was examined. There were grade 0 to 1 changes in the medial femoral condyle and there was an unstable medial meniscus tear. The lateral compartment was examined. There was a tearing of the root with an unstable flap as well as tearing of the body of the meniscus. The biters and juan m were used to debride back the medial and lateral meniscal tears. There was some mild fissuring of the lateral plateau. The patello-femoral joint had grade 0 changes. The knee was sterilely lavaged of any loose debris. The wounds were copiously irrigated with sterile saline. The portals were closed with 3-0 nylon in interrupted fashion. Sterile dressing was applied. Cryo/ Cuff was applied. She was awoken from anesthesia and transferred to the PACU in stable condition. POSTOPERATIVE PLAN: She will be weightbearing as tolerated with crutches. Discharged on pain medications. DVT prophylaxis was considered, but deferred due to no previous personal or family history. I did discuss with the family the ACL rupture and I did not take care this intraoperatively due to significant recovery time, and I would need to talk to the patient before proceeding with it. I will see the patient back in 10 to 14 days. [id number]/CPS #: [id number] MTDD
== END | disposition home or self-care (01) ==
LOC: OR 12:21
PROVIDERS: ATTEND Orthopaedic Surgery
DX: S83.242A Other tear of medial meniscus, current injury, left knee, initial encounter (principal); S83.282A Other tear of lateral meniscus, current injury, left knee, initial encounter; S83.512A Sprain of anterior cruciate ligament of left knee, initial encounter; X58.XXXA Exposure to other specified factors, initial encounter; Y92.9 Unspecified place or not applicable; Z68.39 Body mass index [BMI] 39.0-39.9, adult; M19.90 Unspecified osteoarthritis, unspecified site; F41.9 Anxiety disorder, unspecified
CPT/HCPCS: 81025; J0690; J1100; J1885; J2001; J2250; J2405; J2765; J2795; J3010

== ENCOUNTER 2019-06-08 08:03 | Emergency (ER) | payer BC ==
--- NOTE | 2019-06-08 08:16 | ED ---
Lower Extremity - HPI Summary HPI Summary: This patient is a 29 year old female presenting to [facility] with a chief complaint of left calf pain status post left knee surgery 4 weeks ago. Last night, she states she was sitting in a chair with her legs up on the bed and when she stood up to use the bathroom she experienced a shooting pain in her calf. She states it has been sore since then and she rates this pain 2/10 in severity. The patient reports nausea. Medications reviewed, allergies noted. - History of Current Complaint Chief Complaint: EDExtremityLower Stated Complaint: CALF IS HURTING POST KNEE SURGERY 06/04 PER PT Time Seen by Provider: 06/08/19 08:09 Hx Obtained From: Patient Hx Last Menstrual Period: 1 WEEK AGO Onset of Pain: Days Onset/Duration: Days Pain Intensity: 2 Pain Scale Used: 0-10 Numeric Timing: Constant - Allergies/Home Medications Allergies/Adverse Reactions: Allergies Allergy/AdvReac Type Severity Reaction Status Date / Time ciprofloxacin [From Cipro] Allergy Rash Verified 06/08/19 08:06 Sulfa (Sulfonamide Allergy Rash Verified 06/08/19 08:06 Antibiotics) Home Medications: Home Medications Cephalexin CAP* [Keflex CAP*] 500 mg PO QID MDD 4 tabs 06/08/19 [History Confirmed 06/08/19] Oxycodone HCl/Acetaminophen [Endocet] 1 tab PO .Q4-6 HRS MDD 6 tabs 06/08/19 [ History Confirmed 06/08/19] PMH/Surg Hx/FS Hx/Imm Hx Endocrine/Hematology History: Denies: Hx Diabetes, Hx Thyroid Disease Cardiovascular History: Reports: Hx Hypertension - Pulmonary hypertension, Hx Valvular Heart Disease - Mitral Valve Leakage Mild-Tricuspid Valve leakage Mild , Trace aortic valve, Other Cardiovascular Problems/Disorders - Bradycardia, Possible vaso vagal syncope Denies: Hx Pacemaker/ICD Respiratory History: Denies: Hx Asthma, Hx Chronic Obstructive Pulmonary Disease (COPD), Other Respiratory Problems/Disorders GI History: Reports: Hx Irritable Bowel - History of, not recent Denies: Hx Ulcer, Other GI Disorders History: Reports: Other Problems/Disorders - leaky bladder-wears a pad Denies: Hx Dialysis, Hx Renal Disease Musculoskeletal History: Reports: Hx Arthritis, Hx Tendonitis - Bilateral carpal tunnel, sleeps with a brace, Other Musculoskeletal History - Multiple Left knee injuries- last injury 2 months ago Sensory History: Denies: Hx Contacts or Glasses - 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", Hx Legally Blind, Hx Deafness, Hx Hearing Aid Opthamlomology History: Denies: Hx Contacts or Glasses - 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", Hx Legally Blind Neurological History: Denies: Other Neuro Impairments/Disorders Psychiatric History: Reports: Hx Anxiety - not diagnosed-states she has anxiety Denies: Hx Panic Disorder - Surgical History Surgery Procedure, Year, and Place: None Hx Anesthesia Reactions: No - no prior surgery Infectious Disease History: No Infectious Disease History: Denies: Hx Hepatitis, Hx Human Immunodeficiency Virus (HIV), History Other Infectious Disease, Traveled Outside the [place] in Last 30 Days - Family History Known Family History: Negative: Diabetes - Social History Alcohol Use: Rare Hx Substance Use: Yes Substance Use Type: Reports: Marijuana Substance Use Comment - Amount & Last Used: occasionally Hx Tobacco Use: No Smoking Status (MU): Never Smoked Tobacco Review of Systems Negative: Fever Positive: Nausea Positive: Other - Left calf pain All Other Systems Reviewed And Are Negative: Yes Physical Exam - Summary Physical Exam Summary: Constitutional: Well-developed, Well-nourished, Alert. (-) Distressed Skin: Warm, Dry HENT: Normocephalic; Atraumatic Eyes: Conjunctiva normal Neck: Musculoskeletal ROM normal neck. (-) JVD, (-) Stridor, (-) Tracheal deviation Cardio: Rhythm regular, rate normal, Heart sounds normal; Intact distal pulses; Radial pulses are 2+ and symmetric. (-) Murmur Pulmonary/Chest wall: Effort normal. (-) Respiratory distress, (-) Wheezes, (-) Rales Abd: Soft, (-) tenderness, (-) Distension, (-) Guarding, (-) Rebound Musculoskeletal: Left posterior calf tenderness, no venous cord. Some tenderness with flexion of her foot. Mild swelling compared to the right leg. Lymph: (-) Cervical adenopathy Neuro: Alert, Oriented x3 Psych: Mood and affect Normal Triage Information Reviewed: Yes Vital Signs On Initial Exam: Initial Vitals Temp Pulse Resp BP Pulse Ox 98.0 F 65 16 133/83 99 06/08/19 08:05 06/08/19 08:05 06/08/19 08:05 06/08/19 08:05 06/08/19 08:05 Vital Signs Reviewed: Yes Procedures - Sedation Patient Received Moderate/Deep Sedation with Procedure: No Diagnostics - Vital Signs Vital Signs Temp Pulse Resp BP Pulse Ox 06/08/19 08:05 98.0 F 65 16 133/83 99 - Laboratory Result Diagrams: 06/08/19 08:23 06/08/19 08:23 Lab Statement: Any lab studies that have been ordered have been reviewed, and results considered in the medical decision making process. - Ultrasound No standard instances Ultrasound Interpretation Completed By: Radiologist Summary of Ultrasound Findings: Venous Doppler Study LLE: No evidence for deep vein thrombosis. ED Physician has reviewed this report. Lower Extremity Course/Dx - Course Course Of Treatment: Patient is here with left calf pain following surgery a couple of days ago. Patient negative ultrasound for DVT. Patient normal x- ray. Patient is likely suffering from muscle spasm secondary to leg positioning. - Diagnoses Provider Diagnoses: Acute pain of left lower extremity Discharge ED - Sign-Out/Discharge Documenting (check all that apply): Patient Departure - Discharge - Discharge Plan Condition: Stable Disposition: HOME Patient Education Materials: Leg Pain (ED) Referrals: Jane Tavarez MD [Primary Care Provider] - Additional Instructions: Follow up with Dr. Wei, return to ED with new or worsening symptoms. - Billing Disposition and Condition Condition: STABLE Disposition: Home - Attestation Statements Document Initiated by Carie: Yes Documenting Scribe: Patrick Arnold Provider For Whom Carie is Documenting (Include Credential): Kush Hopson MD Scribe Attestation: Patrick Laughlin, scribed for Kush Hopson MD on 06/08/19 at 1849. Scribe Documentation Reviewed: Yes Provider Attestation: The documentation as recorded by the Patrick weaver accurately reflects the service I personally performed and the decisions made by me, Kush Hopson MD Status of Scribe Document: Viewed
--- OUTSIDE RECORDS SUMMARY | 2019-06-08 08:28 | XMS REPORT | Continuity of Care Document ---
:1990 External Reference #:[id number] Author Name Luis Reed MD (transmitted by agent of provider Gina Da Silva) Address [address] [facility], [facility] [place] [address] Care Team Providers Name Role Phone Solo Sweet MD - Internal Care Team Information [facility] Jane Tavarez MD - Internal Care Team Information [facility] Problems Active Problems Provider Date Knee joint effusion Luis Reed MD Onset: 11/14/2018 Sprain of knee and leg Luis Reed MD Onset: 11/14/2018 Closed traumatic dislocation of patellofemoral Luis Reed MD Onset: 2018 joint Current tear of lateral cartilage AND/OR meniscus Luis Reed MD Onset: of knee Social History Type Date Description Comments Sex Unknown Tobacco Use Start: Unknown Never Smoked Cigarettes ETOH Use Occasionally consumes alcohol ETOH Use social Recreational Drug Use Current Drug User Tobacco Use Start: Unknown Patient has never smoked Recreational Drug Use Current Drug User marijuana Smoking Status Reviewed: 06/01/19 Patient has never smoked Exercise Type/Frequency Exercises sporadically due to knee injury Allergies, Adverse Reactions, Alerts Active Allergies Reaction Severity Comments Date Sulfa Antibiotics 02/16/2017 Medications Active Medications SIG Qnty Indications Ordering Provider Date No Active Medications Unknown 03/29/2019 History Medications Hinge Knee Brace Disp 1 hinge 1units M25.462 Luis Reed MD 02/28/2019 - knee brace 03/28/2019 Immunizations Description No Information Available Vital Signs Date Vital Result Comment 06/01/2019 9:44am Height 63 inches 5'3" Weight 231.00 lb Heart Rate 60 /min BP Systolic 128 mmHg BP Diastolic 84 mmHg Respiratory Rate 16 /min Body Temperature 97.7 F Pain Level 0 BMI (Body Mass Index) 40.9 kg/m2 03/29/2019 2:54pm Height 63 inches 5'3" Weight 221.38 lb with shoes Heart Rate 64 /min right radial BP Systolic Sitting 136 mmHg ule reg cuff BP Diastolic Sitting 80 mmHg ule reg cuff BP Systolic Standing 132 mmHg ule reg cuff BP Diastolic Standing 789 mmHg ule reg cuff BMI (Body Mass Index) 39.2 kg/m2 Ejection Fraction 60-65% echo 02/07/19 Results Description No Information Available Procedures Date Code Description Status 03/29/2019 56445 EKG Tracing & Interpretation Completed 02/07/2019 43965 ECHO Transthoracic, Real-Time 2D With Doppler And Color Completed Flow 02/07/2019 61105 ECHO Transthoracic, Real-Time 2D With Doppler And Color Completed Flow 01/03/2019 72226 EKG Tracing & Interpretation Completed Medical Devices Description No Information Available Encounters Type Date Location Provider Dx Diagnosis Office Visit 03/29/2019 [facility] Flor Gama, I34.0 Nonrheumatic mitral 3:30p N.P. (valve) insufficiency I27.20 Pulmonary hypertension, unspecified R00.1 Bradycardia, unspecified Z01.810 Encounter for preprocedural cardiovascular examination S83.282D Oth tear of lat mensc, current injury, left knee, subs Office Visit 03/16/2019 11:30a [facility] Luis Reed, M25.462 Effusion, left at [place] knee S83.282D Oth tear of lat mensc, current injury, left knee, subs Office Visit 02/15/2019 1:45p [facility] Luis Reed, M25.462 Effusion, left at [place] knee S83.012A Lateral subluxation of left patella, initial encounter Office Visit 01/03/2019 10:00a [facility] Nikolay Mclaughlin E66.9 Obesity , Kirsten Britt unspecified R00.1 Bradycardia, unspecified R42 Dizziness and giddiness R01.1 Cardiac murmur, unspecified R55 Syncope and collapse I27.20 Pulmonary hypertension, unspecified Assessments Date Code Description Provider 06/01/2019 S83.282D Other tear of lateral meniscus, current Luis Reed MD injury, left knee, subsequent encounter 03/29/2019 R00.1 Bradycardia, unspecified Nikolay Britt M.D. 03/29/2019 I34.0 Mitral valve regurgitation Flor SJuan Jose Gama, N.P. 03/29/2019 I27.20 Pulmonary hypertension, unspecified Flor S. Foster, N.P. 03/29/2019 R00.1 Bradycardia, unspecified Flor S. Foster, N.P. 03/29/2019 Z01.810 Encounter for preprocedural Flor Gama, N.P. cardiovascular examination 03/29/2019 S83.282D Other tear of lateral meniscus, current Flor Gama, N.P. injury, left knee, subsequent encounter 03/16/2019 M25.462 Effusion, left knee Luis Reed MD 03/16/2019 S83.282D Other tear of lateral meniscus, current Luis Reed MD injury, left knee, subsequent encounter 02/15/2019 M25.462 Effusion, left knee Luis Reed MD 02/15/2019 S83.012A Lateral subluxation of left patella, Luis Reed MD initial encounter 02/07/2019 I27.20 Pulmonary hypertension, esvinified Nikolay Britt M.D. 02/07/2019 I27.20 Pulmonary hypertension, unspecified [place] [facility] Schedule 02/07/[address] ECHO Schedule 01/03/2019 E66.9 Obesity, unspecified Nikolay Britt M.D. 01/03/2019 R00.1 Bradycardia, unspecified Nikolay Britt M.D. 01/03/2019 R42 Dizziness and giddiness Nikolay Britt M.D. 01/03/2019 R01.1 Cardiac murmur, namrata Britt M.D. 01/03/2019 R55 Syncope and collapse Nikolay Britt M.D. 01/03/2019 I27.20 Pulmonary hypertension Nikolay Britt M.D. Plan of Treatment Future Appointment(s):06/15/2019 11:00 am - Ariella Kent PA-C at [facility] at [id number]/04/2019 11:15 am - Ariella Kent PA-C at [facility] at [id number]/04/2019 11:15 am - Luis Reed MD at [facility] at [id number]/01/2019 - Luis Reed, MDS83.282D Other tear of lateral meniscus, current injury, left knee, subsequent encounterFollow up: Follow up: 10-14 days post op Functional Status Description No Information Available Mental Status Description No Information Available Referrals Description No Information Available
[2019-06-08 08:39] LABS: ABS Lymphocytes 1.5 10^3/ul (1.0-4.8); ABS Monocytes 0.5 10^3/ul (0-0.8); ABS Neutrophils 3.1 10^3/ul (1.5-7.7); Hematocrit 39 % (35-47); Hemoglobin 13.3 g/dL (12.0-16.0); Lymphocyte % 24.8 %; Mean Corpuscular HGB Conc 34 g/dL (31-36); Mean Corpuscular Hemoglobin 32 pg (27-31); Mean Corpuscular Volume 96 fL (80-97); Mean Platelet Volume 6.9 fL (7.4-10.4); Nucleated Red Blood Cells % 0.1; Platelet Count 251 10^3/uL (150-450); Red Blood Count 4.09 10^6 /uL (3.70-4.87); Red Cell Distribution Width 13 % (10-15)
[2019-06-08] MEDS ORDERED: Ondansetron ODT TAB* 4 MG SL ONE (08:41)
[2019-06-08 08:57] LABS: ALT 16 U/L (7-52); AST 22 U/L (13-39); Albumin 3.8 g/dL (3.2-5.2); Albumin/Globulin Ratio 1.3 (1-3); Alkaline Phosphatase 43 U/L (34-104); Anion Gap 6 mmol/L (2-11); BUN/Creatinine Ratio 21.1 (8-20); Blood Urea Nitrogen 15 mg/dL (6-24); CO2 Carbon Dioxide 23 mmol/L (22-32); Calcium 9.2 mg/dL (8.6-10.3); Chloride 108 mmol/L (101-111); EGFR Non-African American 96.7 (>60); Globulin 2.9 g/dL (2-4); Glucose 96 mg/dL (70-100); Potassium 4.4 mmol/L (3.5-5.0); Sodium 137 mmol/L (135-145); Total Protein 6.7 g/dL (6.4-8.9)
[2019-06-08 09:03] LABS: HCG Pregnancy < 0.60 mIU/mL
[2019-06-08 10:19] VITALS: BP 118/84
== END 2019-06-08 10:19 | disposition home or self-care (01) ==
LOC: ED 08:03
DX: M79.605 Pain in left leg (principal); I27.20 Pulmonary hypertension, unspecified; I08.3 Combined rheumatic disorders of mitral, aortic and tricuspid valves; Z88.1 Allergy status to other antibiotic agents; Z88.2 Allergy status to sulfonamides
CPT/HCPCS: 36415; 80053; 84702; 85025; 99282; A9270-GY